=== PATIENT | female | born 1980 | race Caucasian/White ===

== ENCOUNTER 2017-05-01 18:33 | Emergency (ER) | payer OTHER ==
[~2017-05-01] VITALS: Ht 170.2 cm; Wt 127.0 kg
[~2017-05-01 18:33] MED LIST: ALBUTEROL INH; CLEOCIN HCL150 MG PO; CLEOCIN HCL300 MG PO; GLUCOTROL10 MG PO; HYDROCODON-ACE1 EAC7; HYDROCODON-ACE1 EAC7 PO; LISINOPRIL; LISINOPRIL10 MG PO; METFORMIN 500500 MG PO; METFORMIN HCL500 MG; NOHOMEMEDICATIONS; NORCO 5-325 TA1 EAC1 PO; NORCO 5-325 TA1 EACH PO; PHENERGAN 25 MG25 M1 PO; PROTONIX40 MG PO; VICODIN 5-5001 EACH PO; WOMEN'S ONE DA1 EACH PO
[2017-05-01] MEDS ORDERED: LIPITOR10 MG PO (18:46)
[2017-05-01] MEDS ORDERED: JANUVIA100 MG PO (18:46)
[2017-05-01] MEDS ORDERED: GLIMEPIRIDE1 MG PO (18:47)
[2017-05-01] MEDS ORDERED: NORCO 5-325 TA1 EACH PO (20:04)
[2017-05-01] MEDS ORDERED: MOBIC7.5 MG PO (20:04)
[2017-05-01 20:33] VITALS: BP 153/89
== END 2017-05-01 20:33 | disposition home or self-care (01) ==
LOC: M.ERS 18:33
DX: M25.512 Pain in left shoulder (principal); E11.9 Type 2 diabetes mellitus without complications; J45.909 Unspecified asthma, uncomplicated; I10 Essential (primary) hypertension; F17.210 Nicotine dependence, cigarettes, uncomplicated; Z88.0 Allergy status to penicillin; Z88.8 Allergy status to other drugs, medicaments and biological substances